=== PATIENT | female | born 1960 | race Caucasian/White ===

== ENCOUNTER 2016-12-30 01:41 | Inpatient (IN) | payer OTHER ==
[~2016-12-30] VITALS: Ht 167.6 cm; Wt 65.9 kg
[2016-12-30] VITALS (8 sets, daily range): BP systolic 103–133; BP diastolic 66–82
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
[2016-12-30] MEDS ORDERED: ASPIRIN 81 MG TAB.CHEW ONE (01:51)
[2016-12-30] MEDS ORDERED: IV SET PRIMARY 1 EA INFUS.SET MC ONE (01:52)
[2016-12-30] MEDS ORDERED: Magnesium 1GM/D5W 100ML PREMIX 200 ML IV ONE (01:52)
[2016-12-30] MEDS ORDERED: IV NS 0.9% 1,000 ML ONE ×2 (01:52→04:14)
[2016-12-30] MEDS ORDERED: IV SET PRIMARY PUMP SET 1 EA INFUS.SET MC ONE ×3 (01:52→10:53)
[2016-12-30] MEDS ORDERED: ASPIRIN 81 MG TAB.CHEW PO ONE (02:00)
[2016-12-30] MEDS ORDERED: Magnesium 1 GM/2 ML VIAL IV ONE (02:00)
[2016-12-30] MEDS ORDERED: IV NS 0.9% 1,000 ML BAG IV ONE (02:00)
[2016-12-30 02:10] LABS: BASOPHILS % (AUTO) 0.3 % (0.0-2.0); EOSINOPHILS # (AUTO) 0.1 /CMM (0.0-0.7); EOSINOPHILS % (AUTO) 2.4 % (0.0-6.0); HEMATOCRIT 39 % (33-45); HEMOGLOBIN 13.2 g/dL (11.5-14.8); LYMPHOCYTES # (AUTO) 2.3 /CMM (0.8-4.8); LYMPHOCYTES % (AUTO) 37.1 % (20.0-44.0); MEAN CORPUSCULAR HEMOGLOBIN 30 PG (26.0-33.0); MEAN CORPUSCULAR HGB CONC 34 g/dl (31.0-36.0); MEAN CORPUSCULAR VOLUME 89 fL (82-100); MONOCYTES # (AUTO) 0.6 /CMM (0.1-1.30); MONOCYTES % (AUTO) 9.1 % (2.0-12.0); NEUTROPHILS # (AUTO) 3.1 /CMM (1.8-8.9); NEUTROPHILS % (AUTO) 51.1 % (43.0-81.0); PLATELET COUNT (AUTO) 264 /CMM (150-450); RDW COEFFICIENT OF VARIATION 12.9 (11.5-15.0); RED BLOOD CELL COUNT(AUTO) 4.38 MIL/uL (4.0-5.2); WHITE BLOOD COUNT (AUTO) 6.1 K/uL (4.3-11.0)
[2016-12-30] MEDS ORDERED: DILTIAZEM HCL 25 MG IV ONE ×2 (02:11→03:11)
[2016-12-30 02:17] LABS: CALCIUM, SERUM 8.5 mg/dL (8.5-10.1); CARBON DIOXIDE 26 mmol/L (21-32); CHLORIDE 105 mmol/L (98-107); CREATININE 0.9 mg/dL (0.6-1.3); GFR 65 mL/min (>60); GLUCOSE 102 mg/dL (74-106); POTASSIUM 3.2 mmol/L (3.5-5.1); SODIUM SERUM 145 mmol/L (136-145); UREA NITROGEN, BLOOD 13 mg/dL (7-18)
--- NOTE | 2016-12-30 02:20 | NUR ---
MAGNESIUM GIVEN, BUT PT DID NOT CONVERT. NEW ORDERS GIVEN
[2016-12-30 02:25] LABS: TROPONIN I < 0.017 ng/mL (0.00-0.056)
[2016-12-30] MEDS ORDERED: DILTIAZEM HCL 25 MG IV IV ONE ×2 (02:30→03:30)
[2016-12-30] MEDS ORDERED: DILTIAZEM HCL CD 180 MG PO ONE (02:36)
[2016-12-30] MEDS ORDERED: POTASSIUM CHLORIDE 20 MEQ TAB.PRT.SR PO ONE ×3 (02:50→10:30)
[2016-12-30] MEDS ORDERED: DILTIAZEM HCL CD 240 MG PO ONE (03:00)
[2016-12-30 03:04] LABS: D-DIMER 0.42 mg/L(FEU (0.17-0.50); INR 0.91 (0.87-1.13); PROTHROMBIN TIME 9.7 SECS (9.5-12.7)
[2016-12-30] MEDS ORDERED: DULO20CA PO (03:21)
--- NOTE | 2016-12-30 03:39 | NUR ---
PT IS ON A BEDPAN.
--- NOTE | 2016-12-30 03:44 | NUR ---
REPORT GIVEN TO LALITA YEUNG
--- NOTE | 2016-12-30 03:44 | NUR ---
APPROX 600ML PALE YELLOW URINE OUTPUT NOTED.
--- NOTE | 2016-12-30 03:45 | NUR ---
RECEIVED REPORT FROM ER REGARDING NEW ADMISSION, ROOM READY, AWAITING ARRIVAL IN UNIT
--- NOTE | 2016-12-30 03:46 | NUR ---
PT LEFT FOR TELE VIA [facility] PER PROTOCOL.
[2016-12-30] MEDS ORDERED: IV NS 0.9% 1,000 ML IV PRN (03:47)
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
[2016-12-30] MEDS ORDERED: Z GUARD REMEDY 2 OZ OINT TP PRN (04:00)
[2016-12-30] MEDS ORDERED: ZOLPIDEM TARTRATE 5 MG TABLET PO PRN (04:00)
[2016-12-30] MEDS ORDERED: ACETAMINOPHEN 325 MG TABLET PO PRN (04:00)
[2016-12-30] MEDS ORDERED: MAGNESIUM HYDROXIDE 30 ML UDC PO PRN (04:00)
[2016-12-30] MEDS ORDERED: ONDANSETRON HCL/PF 4 MG/2 ML VIAL IVP PRN (04:00)
[2016-12-30] MEDS ORDERED: MAG HYDROX/AL HYDROX/SIMETH 30 ML UDC PO PRN (04:00)
[2016-12-30] MEDS ORDERED: HYDROCODONE/APAP 5/325MG 1 EACH TABLET PO PRN (04:00)
--- NOTE | 2016-12-30 06:54 | NUR ---
PATIENT RESTING COMFORTABLY IN BED, ALERT AND AWAKE, NO SOB, NO RESPIRATORY DISTRESS, NO COMPLAIN OF PAIN, DENIES CHEST PAIN, NO DIZZINESS. ON TELE MONITORING, AFIB DURING AMBULATION TO THE TOILET, WHEN IN BED, MAINTAINS SINUS RHYTHM. NEEDS ATTENDED, KEPT SAFE AND COMFORTABLE, CALL LIGHT WITHIN REACH.
--- NOTE | 2016-12-30 07:26 | NUR ---
RN OPEN NOTES RECEIVED REPORT FROM TELECOM ANALYST NURSE. WILL CONTINUE TO MONITOR AND ASSESS PATIENT
[2016-12-30] MEDS: PANTOPRAZOLE 40 MG TABLET.DR PO SCH (09:46)
[2016-12-30] MEDS: DULOXETINE HCL 20 MG CAPSULE.DR PO SCH (09:46)
[2016-12-30] MEDS ORDERED: Thiamine 100 MG in IV D5W 50 ML IV SCH (10:30)
[2016-12-30] MEDS ORDERED: Folic acid 1 MG in IV D5W 50 ML IV SCH (10:30)
--- NOTE | 2016-12-30 10:34 | NUR ---
PATIENT IS BEING PICKED UP TO CT SCAN
[2016-12-30] MEDS ORDERED: SET RED CAP 1 EA INFUS.SET MC ONE (10:53)
[2016-12-30] MEDS ORDERED: SECONDARY IV SET 1 EA INFUS.SET MC ONE (10:53)
[2016-12-30 10:56] LABS: CALCIUM, SERUM 8.2 mg/dL (8.5-10.1); CREATININE 0.8 mg/dL (0.6-1.3); POTASSIUM 4.3 mmol/L (3.5-5.1)
[2016-12-30] MEDS: IV D5/ 0.9% NACL 1,000 ML IV PRN ×2 (11:02→22:46)
[2016-12-30 11:12] LABS: ALBUMIN 3.7 g/dL (3.4-5.0); BILIRUBIN,TOTAL 0.3 mg/dL (0.2-1.0); MAGNESIUM 2.5 mg/dL (1.8-2.4); PHOSPHORUS 4.4 mg/dL (2.5-4.9); TOTAL PROTEIN, SERUM 6.9 g/dL (6.4-8.2)
[2016-12-30 11:13] LABS: THYROID STIMULATING HORMONE 1.362 uIU/mL (0.358-3.74)
[2016-12-30] MEDS ORDERED: ASPIRIN EC 325 MG TABLET.DR PO SCH (13:00)
--- NOTE | 2016-12-30 14:20 | NUR ---
SPOKE WITH DR SYKES REGARDING CT OF THE HEAD RESULTS. PER DR SYKES, PATIENT TO STAY ANOTHER NIGHT AND POSSIBLE DISCHARGE TOMORROW AM.
[2016-12-30 15:04] LABS: APPEARANCE,URINE SL CLOUDY (CLEAR); BILIRUBIN,URINE NEGATIVE (NEGATIVE); BLOOD, URINE NEGATIVE Ery/uL (NEGATIVE); COLOR,URINE YELLOW (YELLOW); KETONES,URINE 1+ (NEGATIVE); LEUKOCYTE ESTERASE ,URINE NEGATIVE (NEGATIVE); NITRITE, URINE NEGATIVE (NEGATIVE); PH,URINE 6.5 (5.0-8.0); PROTEIN,URINE NEGATIVE (NEGATIVE); UGLUCOSE NEGATIVE (NEGATIVE); UROBILINOGEN,URINE 0.2 EU/dL (0.2)
[2016-12-30 15:06] LABS: CANNABINOID, URINE NEGATIVE (NEGATIVE); PHENCYCLIDINE SCREEN,URINE NEGATIVE (NEGATIVE)
[2016-12-30 16:05] LABS: ADD URINE CULTURE NO; BACTERIA,URINE Rare /HPF (None Seen); RBC,URINE 0-2 /HPF (0-2); WBC,URINE 0-2 /HPF (0-3)
[2016-12-30 16:06] LABS: SQUAMOUS EPITHELIAL CELL,UR Few /HPF (None Seen)
--- NOTE | 2016-12-30 19:30 | NUR ---
CANAL STRUCTURE OPERATOR NOTE, RECEIVED PATIENT AWAKE AND IN BED, NO S/S OR COMPLAINTS OF PAIN AT THIS TIME. PATIENT IS DISPLAYING NO S/S OF APPARENT DISTRESS AT THIS TIME. PATIENT BREATHING IS UNLABORED WITH EQUAL RISE AND FALL OF THE CHEST. PATIENT IS ALERT AND ORIENTED X 4 ON ROOM AIR WITH A SPO2 98%. IVF D5 NS @ 125ML /HR INFUSING WELL INTO LEFT FORE ARM 22 GAUGE THAT IS INTACT, PATENT, AND FLUSHING WELL WITH NO S/S OF INFILTRATION. PATIENT ASSISTED WITH TURNING AND REPOSITIONING Q2HR AND PRN FOR COMFORT AND CIRCULATION. PATIENT HAS NO NEEDS AT THIS TIME. PATIENT EDUCATED ON THE USE OF THE CALL LIGHT. PATIENT BED SIDE RAILS UP X2 FOR SAFETY, BED IS LOCKED AND LOW WILL CONTINUE TO MONITOR AND MAINTAIN SAFETY. SINUS RHYTEM HEART RATE 79.
--- NOTE | 2016-12-30 19:48 | NUR ---
slip sheeter closing notes Charu CELIS endorsed to next shift RN to continue care. All needs provided, attended, and anticipated. kept patient clean and comfortable in bed, call light with in patient reach.
--- NOTE | 2016-12-30 22:05 | NUR ---
TEL RN NOTE, PATIENT HAS A COMPLAINT OF NOT BEING ABLE TO SLEEP AND WOULD LIKE A SLEEPING AID AT THIS TIME. PATIENT VITAL SIGNS ARE STABLE GAVE AMBIEN 5MG PO HS ORDERED. WILL REASSESS FOR INSOMNIA AND I WILL CONTINUE TO MONITOR THIS PATIENT.
[2016-12-31] VITALS: BP 110/62
[2016-12-31 04:00] VITALS: BP 120/82
[2016-12-31 04:25] VITALS: BP 120/82
--- NOTE | 2016-12-31 06:12 | NUR ---
KNOBBER NOTE, PATIENT AWAKE AND IN BED, NO S/S OR COMPLAINTS OF PAIN AT THIS TIME. PATIENT IS DISPLAYING NO S/S OF APPARENT DISTRESS AT THIS TIME. PATIENT BREATHING IS UNLABORED WITH EQUAL RISE AND FALL OF THE CHEST. PATIENT IS ALERT AND ORIENTED X 4 ON ROOM AIR WITH A SPO2 98%. IVF D5 NS @ 125ML /HR INFUSING WELL INTO LEFT FORE ARM 22 GAUGE THAT IS INTACT, PATENT, AND FLUSHING WELL WITH NO S/S OF INFILTRATION. PATIENT ASSISTED WITH TURNING AND REPOSITIONING Q2HR AND PRN FOR COMFORT AND CIRCULATION. ALL PATIENT NEEDS ANTICIPATED AND MET. PATIENT KEPT CLEAN, DRY, AND COMFORTABLE THROUGH OUT THE SHIFT. PATIENT BED SIDE RAILS UP X2 FOR SAFETY, BED IS LOCKED AND LOW WILL ENDORSE TO AM SHIFT NURSE FOR CONTINUEATION OF CARE. SINUS RHYTEM HEART RATE 67.
[2016-12-31 07:37] LABS: BASOPHILS % (AUTO) 0.3 % (0.0-2.0); EOSINOPHILS # (AUTO) 0.2 /CMM (0.0-0.7); EOSINOPHILS % (AUTO) 2.6 % (0.0-6.0); HEMATOCRIT 36 % (33-45); LYMPHOCYTES # (AUTO) 1.4 /CMM (0.8-4.8); MEAN CORPUSCULAR HEMOGLOBIN 30 PG (26.0-33.0); MEAN CORPUSCULAR HGB CONC 34 g/dl (31.0-36.0); MEAN CORPUSCULAR VOLUME 89 fL (82-100); MONOCYTES # (AUTO) 0.5 /CMM (0.1-1.30); NEUTROPHILS # (AUTO) 3.7 /CMM (1.8-8.9); NEUTROPHILS % (AUTO) 65.1 % (43.0-81.0); PLATELET COUNT (AUTO) 194 /CMM (150-450); RDW COEFFICIENT OF VARIATION 13.3 (11.5-15.0); RED BLOOD CELL COUNT(AUTO) 3.98 MIL/uL (4.0-5.2); WHITE BLOOD COUNT (AUTO) 5.7 K/uL (4.3-11.0)
[2016-12-31 07:44] LABS: CALCIUM, SERUM 8.1 mg/dL (8.5-10.1); CREATININE 0.6 mg/dL (0.6-1.3); MAGNESIUM 2.3 mg/dL (1.8-2.4); PHOSPHORUS 3.6 mg/dL (2.5-4.9); POTASSIUM 4.2 mmol/L (3.5-5.1)
--- NOTE | 2016-12-31 07:48 | NUR ---
RN MS NOTES PATIENT IN BED, AWAKE AND VERBALLY RESPONSIVE, DENIES PAIN, DENIES SOB. IV LINE PATENT, NO S/S OF INFILTRATION NOTED. ALL NEEDS MET, KEPT CLEAN AND DRY.
[2016-12-31 07:56] VITALS: BP 137/78
[2016-12-31] MEDS: DULOXETINE HCL 20 MG CAPSULE.DR PO SCH (08:29)
[2016-12-31] MEDS: PANTOPRAZOLE 40 MG TABLET.DR PO SCH (08:29)
[2016-12-31 08:41] LABS: THYROID STIMULATING HORMONE 2.779 uIU/mL (0.358-3.74)
[2016-12-31] MEDS ORDERED: FOLIC ACID 1 MG TABLET PO SCH (09:00)
--- NOTE | 2016-12-31 11:40 | NUR ---
RN MS CLOSING NOTES PATIENT LEFT AMBULATING WITH HER VIA PRIVATE CAR,. PATIENT IN NO APPARENT DISTRESS, DENIES SOB, DENIES PAIN.SKIN CLEAR AND INTACT. DISCHARGE INSTRUCTIONS REVIEWED WITH PATIENT AND , THEY SATED UNDERSTANDING. PATIENT BELONGING LIST DONE, SIGNED BY PATIENT. IV LINE DISCONTINUED, ALL DUE MEDS GIVEN. ALL NEEDS ATTENDED.
== END 2016-12-31 12:00 | disposition home or self-care (01) | DRG 74 ==
LOC: ER 01:43 → TELE 03:46 → MED 12-31 09:20
DX: G90.8 Other disorders of autonomic nervous system (principal); D68.59 Other primary thrombophilia; I48.91 Unspecified atrial fibrillation; Y90.9 Presence of alcohol in blood, level not specified; R56.9 Unspecified convulsions; F32.9 Major depressive disorder, single episode, unspecified; F10.20 Alcohol dependence, uncomplicated; E87.6 Hypokalemia; E86.0 Dehydration
CPT/HCPCS: 36415; 70450-TC; 71010-TC; 80048-TC; 80053-TC; 80061-TC; 80305; 81000-TC; 82962-TC; 83735-TC; 84100-TC; 84439-TC; 84443-TC; 84484-TC; 85025-TC; 85378-TC; 85730-TC; 87081-TC; 93307-TC; A4606; J3411; J3475; J3490; J7030; J7042; J7060; Z7610

== ENCOUNTER 2018-08-25 17:19 | Emergency (ER) | payer BC, OTHER ==
[~2018-08-25] VITALS: Ht 167.6 cm; Wt 68.9 kg
[~2018-08-25 17:19] MED LIST: DULO20CA PO
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
--- NOTE | 2018-08-25 18:02 | NUR ---
PT TAKEN TO CT VIA [facility]
--- NOTE | 2018-08-25 18:38 | NUR ---
[facility]T AT BEDSIDE FOR WOUND CARE.
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
[2018-08-25] MEDS ORDERED: HYDROCODONE/APAP 5/325MG 1 EACH TABLET PO ONE (19:00)
[2018-08-25] MEDS ORDERED: TDAP [DIPH/PERTUSSIS/TET] 0.5 ML VIAL IM ONE ×2 (19:00→19:03)
[2018-08-25] MEDS ORDERED: LIDOCAINE 1%-EPI 1:100,000 20 ML VIAL TP ONE (19:00)
[2018-08-25] MEDS ORDERED: LIDOCAINE 1%-EPI 1:100,000 20 ML VIAL ONE (19:03)
--- NOTE | 2018-08-25 19:30 | NUR ---
DENISE GAITAN AT BEDSIDE FOR WOUND CARE
--- NOTE | 2018-08-25 19:45 | NUR ---
PT TOLERATING PROCEDURE WELL
--- NOTE | 2018-08-25 20:32 | NUR ---
Patient discharged to home in stable condition. Written and verbal after care instructions given. Patient verbalizes understanding of instruction.
[2018-08-25 20:36] VITALS: BP 118/79
== END 2018-08-25 20:28 | disposition home or self-care (01) ==
LOC: ER 17:32
DX: S06.0X0A Concussion without loss of consciousness, initial encounter (principal); S01.01XA Laceration without foreign body of scalp, initial encounter; S60.512A Abrasion of left hand, initial encounter; S60.511A Abrasion of right hand, initial encounter; F32.9 Major depressive disorder, single episode, unspecified; Z79.899 Other long term (current) drug therapy; Y04.0XXA Assault by unarmed brawl or fight, initial encounter; Y93.89 Activity, other specified; Y92.89 Other specified places as the place of occurrence of the external cause; Y99.8 Other external cause status
CPT/HCPCS: 70450-TC; 72125-TC; 73130-TC; 90715; A6402; A6403; J3490